=== PATIENT | male | born 1965 | race African-American/Black ===

== ENCOUNTER 2016-06-24 11:43 | Inpatient (IN) | payer OTHER ==
[2016-06-24 12:45] VITALS: BMI 18.6
--- NOTE | 2016-06-24 14:39 | HP ---
CIWA Score - CIWA Score Nausea/Vomitin-No Nausea/No Vomiting Muscle Tremors: 4-Moderate,w/Arms Extend Anxiety: 4-Mod. Anxious/Guarded Agitation: 4-Moderately Restless Paroxysmal Sweats: 3 Orientation: 0-Oriented Tacttile Disturbances: 0-None Auditory Disturbances: 0-None Visual Disturbances: 0-None Headache: 1-Very Mild CIWA-Ar Total Score: 16 Admission ROS BHS - HPI Chief Complaint: I am here for detox and want to stop drinking. Allergies/Adverse Reactions: Allergies Allergy/AdvReac Type Severity Reaction Status Date / Time penicillin G Allergy Severe Hives Verified 06/24/16 14:22 History of Present Illness: pt is a 51yr old male with chronic alcohol dependence seeking detox for treatment. Exam Limitations: No Limitations - Ebola screening Have you traveled outside of the country in the last 21 days: No Have you had contact with anyone from an Ebola affected area: No Have you been sick,other than usual withdrawal symptoms: No Do you have a fever: No - Review of Systems Constitutional: Chills, Diaphoresis, Night Sweats EENT: reports: No Symptoms Reported Respiratory: reports: No Symptoms reported Cardiac: reports: No Symptoms Reported GI: reports: Poor Appetite, Poor Fluid Intake : reports: No Symptoms Reported Musculoskeletal: reports: No Symptoms Reported Integumentary: reports: Flushing, Sweating Neuro: reports: Tingling, Tremors Endocrine: reports: Excessive Sweating, Flushing Hematology: reports: No Symptoms Reported Psychiatric: reports: Judgement Intact, Mood/Affect Appropiate, Orientated x3, Agitated, Anxious, Depressed Other Systems: Reviewed and Negative Patient History - Patient Medical History Hx Anemia: No Hx Asthma: No Hx Chronic Obstructive Pulmonary Disease (COPD): No Hx Cancer: No Hx Cardiac Disorders: No Hx Congestive Heart Failure: No Hx Hypertension: No Hx Hypercholesterolemia: No Hx Pacemaker: No HX Cerebrovascular Accident: No Hx Seizures: No Hx Dementia: No Hx Diabetes: No Hx Gastrointestinal Disorders: No Hx Liver Disease: No Hx Genitourinary Disorders: No Hx Sexually Transmitted Disorders: No Hx Renal Disease (ESRD): No Hx Thyroid Disease: No Hx Human Immunodeficiency Virus (HIV): No Hx Hepatitis C: No Hx Depression: No Hx Suicide Attempt: No Hx Bipolar Disorder: No Hx Schizophrenia: No - Patient Surgical History Past Surgical History: No Hx Neurologic Surgery: No Hx Cataract Extraction: No Hx Cardiac Surgery: No Hx Lung Surgery: No Hx Breast Surgery: No Hx Breast Biopsy: No Hx Abdominal Surgery: No Hx Appendectomy: No Hx Cholecystectomy: No Hx Genitourinary Surgery: No Hx Section: No Hx Orthopedic Surgery: No Anesthesia Reaction: No - PPD History Previous Implant?: Yes Documented Results: Negative w/proof Implanted On Prior [facility] Admission?: Yes Date: 08/09/15 Results: 0 mm PPD to be Administered?: No - Reproductive History Patient is a Female of Child Bearing Age (11 -55 yrs old): No - Smoking Cessation Smoking history: Current some day smoker Have you smoked in the past 12 months: Yes Aproximately how many cigarettes per day: 3 Hx Chewing Tobacco Use: No Initiated information on smoking cessation: Yes 'Breaking Loose' booklet given: 06/24/16 - Substance & Tx. History Hx Alcohol Use: Yes Hx Substance Use: No Substance Use Type: Alcohol Hx Substance Use Treatment: Yes - Substances Abused Alcohol-rum Route: Oral Frequency: Daily Amount used: 2-3 pts. Age of first use: 15 Date of Last Use: 06/23/16 Family Disease History - Family Disease History Family History: Denies Admission Physical Exam BHS - Vital Signs Vital Signs: Vital Signs - 24 hr 06/24/16 12:43 Temperature 98.9 F Pulse Rate 112 H Respiratory 20 Rate Blood Pressure 122/73 - Physical General Appearance: Yes: Moderate Distress, Thin, Tremorous, Irritable, Sweating , Anxious HEENTM: Yes: Normal Voice Respiratory: Yes: Lungs Clear, Normal Breath Sounds, No Respiratory Distress Neck: Yes: No masses,lesions,Nodules Breast: Yes: Within Normal Limits Cardiology: Yes: Regular Rhythm, Regular Rate, S1, S2 Abdominal: Yes: Normal Bowel Sounds, Non Tender, Soft Genitourinary: Yes: Within Normal Limits Back: Yes: Normal Inspection Musculoskeletal: Yes: full range of Motion Extremities: Yes: Normal Capillary Refill, Tremors Neurological: Yes: Fully Oriented, Alert, Normal Response Integumentary: Yes: Normal Color, Diaphoresis Lymphatic: Yes: Within Normal Limits - Diagnostic (1) Alcohol dependence with uncomplicated withdrawal Current Visit: Yes Status: Chronic (2) Nicotine dependence Current Visit: Yes Status: Chronic Qualifiers: Nicotine product type: cigarettes Substance use status: uncomplicated Qualified Code(s): F17.210 - Nicotine dependence, cigarettes, uncomplicated Cleared for Admission [facility] - Detox or Rehab [facility] Level of Care: Medically Managed Detox Regimen/Protocol: Librium [facility] Breath Alcohol Content Breath Alcohol Content: 0.034 Urine Drug Screen - Results Drug Screen Negative: Yes
[2016-06-24] MEDS ORDERED: MAGNESIUM HYDROX 2400MG/30ML ORAL SUSPENSION 30 ML CUP PO PRN (14:40)
[2016-06-24] MEDS ORDERED: MENTHOL/PHENOL 1 EACH UD MM PRN (14:40)
[2016-06-24] MEDS ORDERED: LOPERAMIDE HCL 2 MG CAPSULE PO PRN (14:40)
[2016-06-24] MEDS ORDERED: MAGNESIUM CITRATE 300 ML BOTTLE PO PRN (14:40)
[2016-06-24] MEDS ORDERED: hydrOXYzine PAMOATE 50 MG CAPSULE (FP) PO PRN (14:40)
[2016-06-24] MEDS ORDERED: IBUPROFEN 400 MG TABLET (FP) PO PRN (14:40)
[2016-06-24] MEDS ORDERED: guaiFENesin/D-METHORPHAN HB 10 ML UNIT-DOSE CUPS PO PRN (14:40)
[2016-06-24] MEDS ORDERED: chlordiazePOXIDE HCL 25 MG CAPSULE PO PRN (14:40)
[2016-06-24] MEDS ORDERED: P-EPHED 60MG/TRIPROLIDI 2.5MG TABLET PO PRN (14:40)
[2016-06-24] MEDS ORDERED: ACETAMINOPHEN 325 MG TABLET (FP) PO PRN (14:40)
[2016-06-24] MEDS ORDERED: MAG HYDROX/AL HYDROX/SIMETH 30 ML UNIT-DOSE CUP PO PRN (14:40)
[2016-06-24] MEDS ORDERED: chlordiazePOXIDE HCL 25 MG CAPSULE PO ONE (15:31)
[2016-06-24] MEDS: chlordiazePOXIDE HCL 25 MG CAPSULE PO SCH ×2 (16:22→22:48)
[2016-06-24 20:04] LABS: URINE APPEARANCE TURBID; URINE BILIRUBIN NEGATIVE (NEGATIVE); URINE BLOOD NEGATIVE (NEGATIVE); URINE COLOR YELLOW; URINE GLUCOSE (UA) NEGATIVE (NEGATIVE); URINE KETONE TRACE (NEGATIVE); URINE LEUK ESTERASE NEGATIVE (NEGATIVE); URINE NITRITE NEGATIVE (NEGATIVE); URINE UROBILINOGEN 2.0 E.U/dl E.U./dl (0.2-1.0)
[2016-06-24 20:08] LABS: URINE PROTEIN 2+ (NEGATIVE)
[2016-06-24 20:13] LABS: URINE BACTERIA RARE /hpf (NONE SEEN); URINE MUCUS RARE; URINE RBC <1 /hpf (0-3); URINE WBC 2 /hpf (3-5)
[2016-06-24] MEDS: THIAMINE HCL 100 MG TABLET (FP) PO SCH (22:48)
[2016-06-24] MEDS: diphenhydrAMINE HCL 50 MG CAPSULE PO PRN (22:48)
[2016-06-25] MEDS: chlordiazePOXIDE HCL 25 MG CAPSULE PO SCH ×4 (05:54→22:51)
[2016-06-25 09:46] LABS: MCH 31.7 pg (25.7-33.7); MCHC 33.1 g/dl (32.0-35.9); MEAN CELL VOLUME 95.7 fl (80-96); MEAN PLT VOLUME 8.3 fl (7.5-11.1); PLATELET COUNT 300 K/MM3 (134-434); RDW 14.7 % (11.9-15.9); WHITE BLOOD COUNT 3.8 K/mm3 (4.0-10.0)
[2016-06-25] MEDS ORDERED: PRENATAL VITAMINS W/ FOLIC ACID TABLET (FP) PO SCH (10:00)
[2016-06-25] MEDS ORDERED: NICOTINE 7 MG/24 HOURS TOPICAL PATCH TD SCH (10:00)
[2016-06-25 10:25] LABS: ALBUMIN 4.3 g/dl (3.4-5.0); ALK PHOS 190 U/L (45-117); ANION GAP 14 (8-16); BILIRUBIN,TOTAL 0.8 mg/dL (0.2-1.0); CALCIUM 9.5 mg/dL (8.5-10.1); CO2 27 mmol/L (21-32); GLUCOSE,RANDOM 138 mg/dL (74-106); SGOT/AST 85 U/L (15-37); SGPT/ALT 63 U/L (12-78); TOT PROT 8.8 g/dl (6.4-8.2)
--- NOTE | 2016-06-25 10:47 | EKG ---
Test Reason : Blood Pressure : / mmHG Vent. Rate : 093 BPM Atrial Rate : 093 BPM P-R Int : 118 ms QRS Dur : 080 ms QT Int : 356 ms P-R-T Axes : 082 083 072 degrees QTc Int : 442 ms NORMAL SINUS RHYTHM NORMAL ECG WHEN COMPARED WITH ECG OF 30-JAN-2011 08:29, NO SIGNIFICANT CHANGE WAS FOUND Confirmed by KISHORE RIOS MD ([id number]) on 06/25/2016 10:46:59 AM Referred By: Jonas Carreno Confirmed By:KISHORE RIOS MD
--- NOTE | 2016-06-25 11:19 | PN ---
S CIWA - CIWA Score Nausea/Vomitin-No Nausea/No Vomiting Muscle Tremors: 3 Anxiety: 4-Mod. Anxious/Guarded Agitation: 3 Paroxysmal Sweats: 3 Orientation: 0-Oriented Tacttile Disturbances: 0-None Auditory Disturbances: 0-None Visual Disturbances: 0-None Headache: 0-None Present CIWA-Ar Total Score: 13 BHS Progress Note (SOAP) Subjective: Anxiety,tremors,sweating,interrupted sleep,restless Objective: 06/25/16 11:18 Vital Signs - 8 hr 06/25/16 06/25/16 06/25/16 03:30 06:39 10:01 Temperature 97.6 F 95.9 F L Pulse Rate 107 H 94 H Respiratory 18 18 19 Rate Blood Pressure 117/74 122/76 Laboratory Tests 06/24/16 06/25/16 06/25/16 16:00 05:50 05:50 WBC 3.8 L RBC 4.87 Hgb 15.4 Hct 46.6 MCV 95.7 MCHC 33.1 RDW 14.7 Plt Count 300 MPV 8.3 Sodium 136 Potassium 4.5 Chloride 95 L Carbon Dioxide 27 Anion Gap 14 BUN 19 H Creatinine 1.0 D Creat Clearance w eGFR > 60 Random Glucose 138 H D Calcium 9.5 Total Bilirubin 0.8 D AST 85 H D ALT 63 D Alkaline Phosphatase 190 H D Total Protein 8.8 H Albumin 4.3 Urine Color Yellow Urine Appearance Turbid Urine pH 5.0 Ur Specific [place] 1.028 Urine Protein 2+ H Urine Glucose (UA) Negative Urine Ketones Trace H Urine Blood Negative Urine Nitrite Negative Urine Bilirubin Negative Urine Urobilinogen 2.0 e.u/dl Ur Leukocyte Esterase Negative Urine RBC <1 Urine WBC 2 Ur Epithelial Cells Rare Urine Bacteria Rare Urine Mucus Rare labs noted Assessment: 06/25/16 11:18 withdrawal sx. Plan: continue detox
[2016-06-25] MEDS: THIAMINE HCL 100 MG TABLET (FP) PO SCH (22:51)
[2016-06-25] MEDS: diphenhydrAMINE HCL 50 MG CAPSULE PO PRN (22:51)
[2016-06-26] MEDS: chlordiazePOXIDE HCL 25 MG CAPSULE PO SCH (06:18)
[2016-06-26 06:54] VITALS: BP 114/77; PULSE 89; TEMP 96.8
[2016-06-26] MEDS ORDERED: chlordiazePOXIDE 5 MG CAPSULE PO SCH (17:00)
--- NOTE | 2016-06-26 17:42 | DS ---
[facility] Detox Discharge Summary Admission Date: 06/24/16 Discharge Date: 06/26/16 - History Present History: Alcohol Dependence Pertinent Past History: denies - Physical Exam Results Vital Signs: Vital Signs Temperature 96.8 F L 06/26/16 06:53 Pulse Rate 89 06/26/16 06:53 Respiratory Rate 16 06/26/16 06:53 Blood Pressure 114/77 06/26/16 06:53 O2 Sat by Pulse Oximetry (%) Pertinent Admission Physical Exam Findings: withdrawal sx. Laboratory Last Values WBC 3.8 K/mm3 (4.0-10.0) L 06/25/16 05:50 RBC 4.87 M/mm3 (4.00-5.60) 06/25/16 05:50 Hgb 15.4 GM/dL (11.7-16.9) 06/25/16 05:50 Hct 46.6 % (35.4-49) 06/25/16 05:50 MCV 95.7 fl (80-96) 06/25/16 05:50 MCHC 33.1 g/dl (32.0-35.9) 06/25/16 05:50 RDW 14.7 % (11.9-15.9) 06/25/16 05:50 Plt Count 300 K/MM3 (134-434) 06/25/16 05:50 MPV 8.3 fl (7.5-11.1) 06/25/16 05:50 Sodium 136 mmol/L (136-145) 06/25/16 05:50 Potassium 4.5 mmol/L (3.5-5.1) 06/25/16 05:50 Chloride 95 mmol/L (98-107) L 06/25/16 05:50 Carbon Dioxide 27 mmol/L (21-32) 06/25/16 05:50 Anion Gap 14 (8-16) 06/25/16 05:50 BUN 19 mg/dL (7-18) H 06/25/16 05:50 Creatinine 1.0 mg/dL (0.7-1.3) D 06/25/16 05:50 Creat Clearance w eGFR > 60 (>60) 06/25/16 05:50 Random Glucose 138 mg/dL (74-106) H D 06/25/16 05:50 Calcium 9.5 mg/dL (8.5-10.1) 06/25/16 05:50 Total Bilirubin 0.8 mg/dL (0.2-1.0) D 06/25/16 05:50 AST 85 U/L (15-37) H D 06/25/16 05:50 ALT 63 U/L (12-78) D 06/25/16 05:50 Alkaline Phosphatase 190 U/L (45-117) H D 06/25/16 05:50 Total Protein 8.8 g/dl (6.4-8.2) H 06/25/16 05:50 Albumin 4.3 g/dl (3.4-5.0) 06/25/16 05:50 Urine Color Yellow 06/24/16 16:00 Urine Appearance Turbid 06/24/16 16:00 Urine pH 5.0 (5.0-8.0) 06/24/16 16:00 Ur Specific [place] 1.028 (1.001-1.035) 06/24/16 16:00 Urine Protein 2+ (NEGATIVE) H 06/24/16 16:00 Urine Glucose (UA) Negative (NEGATIVE) 06/24/16 16:00 Urine Ketones Trace (NEGATIVE) H 06/24/16 16:00 Urine Blood Negative (NEGATIVE) 06/24/16 16:00 Urine Nitrite Negative (NEGATIVE) 06/24/16 16:00 Urine Bilirubin Negative (NEGATIVE) 06/24/16 16:00 Urine Urobilinogen 2.0 e.u/dl E.U./dl (0.2-1.0) 06/24/16 16:00 Ur Leukocyte Esterase Negative (NEGATIVE) 06/24/16 16:00 Urine RBC <1 /hpf (0-3) 06/24/16 16:00 Urine WBC 2 /hpf (3-5) 06/24/16 16:00 Ur Epithelial Cells Rare /hpf (FEW) 06/24/16 16:00 Urine Bacteria Rare /hpf (NONE SEEN) 06/24/16 16:00 Urine Mucus Rare 06/24/16 16:00 RPR Titer Nonreactive (NONREACTIVE) 06/25/16 05:50 labs noted - Medication Discharge Medications: Ambulatory Orders NK [No Known Home Medication] 07/12/14 - Diagnosis (1) Alcohol dependence with uncomplicated withdrawal Status: Acute (2) Nicotine dependence Status: Acute Qualifiers: Nicotine product type: cigarettes Substance use status: uncomplicated Qualified Code(s): F17.210 - Nicotine dependence, cigarettes, uncomplicated - AMA Did Patient Leave Against Medical Advice: Yes
[2016-06-27] MEDS ORDERED: chlordiazePOXIDE HCL 10 MG CAPSULE PO SCH (17:00)
== END 2016-06-26 09:29 | disposition left against medical advice (07) | DRG 770 ==
LOC: YASAS 11:43 → Y3N 15:22
PROVIDERS: ADMIT Internal Medicine; ATTEND Internal Medicine
PROC: HZ2ZZZZ Detoxification Services for Substance Abuse Treatment (ICD-10-PCS; principal; 2016-06-26)
DX: F10.230 Alcohol dependence with withdrawal, uncomplicated (principal); F17.210 Nicotine dependence, cigarettes, uncomplicated
CPT/HCPCS: 36415; 80053; 81003; 81015; 85027; 86593; 93005; 93010